=== PATIENT | female | born 1985 | race Caucasian/White ===

== ENCOUNTER 2022-01-17 06:29 | Observation (INO) ==
[2022-01-17] MEDS ORDERED: ANCEF VIAL 1 GRAM IVP ONE (06:34)
[2022-01-17] MEDS ORDERED: NS 100 ML IV 100 ML ONE (06:38)
[2022-01-17] MEDS: D5 1/2 NS 1,000 ML 1,000 ML IV SCH ×4 (06:50→18:47)
[2022-01-17] MEDS ORDERED: DUONEB 0.5 MG/3 MG (3 mL) NEB ONE (06:52)
[2022-01-17] MEDS ORDERED: FENTANYL VIAL INJ 100 mcg ONE (06:59)
[2022-01-17] MEDS ORDERED: VERSED ONE (06:59)
[2022-01-17] MEDS ORDERED: BRIDION ONE (07:01)
[2022-01-17] MEDS ORDERED: PEPCID 20 MG VIAL ONE (07:01)
[2022-01-17] MEDS ORDERED: ZEMURON 100 MG VIAL ONE (07:01)
[2022-01-17] MEDS ORDERED: ZOFRAN INJ 4 MG VIAL ONE ×2 (07:01→10:08)
[2022-01-17] MEDS ORDERED: PRECEDEX INJ VIAL IVP ONE (07:01)
[2022-01-17] MEDS ORDERED: DIPRIVAN VIAL 20 ML ONE (07:01)
[2022-01-17] MEDS ORDERED: BETADINE SOLN ONE (07:02)
[2022-01-17] MEDS ORDERED: VASOSTRICT INJ 20 UNITS VIAL ONE (07:05)
[2022-01-17 07:13] VITALS: BMI 18.8
[2022-01-17] MEDS ORDERED: VENTOLIN or PROAIR HFA ONE (07:22)
[2022-01-17] MEDS ORDERED: KETAMINE HCL ONE (07:22)
[2022-01-17] MEDS ORDERED: ULTANE GAS IN ONE ×2 (07:22→08:02)
[2022-01-17] MEDS ORDERED: XYLOCAINE 2 % (PLAIN) ONE (07:26)
[2022-01-17] MEDS ORDERED: LACRI-LUBE S.O.P. ONE (07:37)
[2022-01-17] MEDS ORDERED: OFIRMEV IV 1000 MG VIAL 1,000 MG/100 ML VIAL IV ONE (07:37)
[2022-01-17] MEDS ORDERED: DECADRON INJ ONE (07:39)
[2022-01-17] MEDS ORDERED: NEO-SYNEPHRINE INJ ONE (07:40)
[2022-01-17] MEDS ORDERED: TORADOL 30 MG VIAL ONE (09:06)
[2022-01-17] MEDS ORDERED: BARHEMSYS INJ IVP PRN (09:44)
[2022-01-17] MEDS ORDERED: PHENERGAN INJ 25 MG IM PRN (09:44)
[2022-01-17] MEDS ORDERED: BENADRYL INJ 50 MG VIAL IVP PRN ×2 (09:44→10:19)
[2022-01-17] MEDS ORDERED: BARHEMSYS INJ ONE (09:48)
[2022-01-17] MEDS ORDERED: DILAUDID INJ ONE ×2 (09:54→10:07)
[2022-01-17] MEDS: DILAUDID INJ IVP PRN ×3 (09:55→10:05)
[2022-01-17] MEDS ORDERED: ZOFRAN INJ 4 MG VIAL IVP PRN (10:19)
[2022-01-17] MEDS ORDERED: D5 1/2 NS 1,000 ML 1,000 ML IV SCH (10:19)
[2022-01-17] MEDS ORDERED: TORADOL 30 MG VIAL IVP PRN (10:19)
[2022-01-17] MEDS ORDERED: MORPHINE SULFATE PCA 30 MG IVP PRN (10:19)
[2022-01-17] MEDS ORDERED: PERCOCET TAB 5/325 MG PO PRN (17:04)
[2022-01-17] MEDS ORDERED: MOTRIN TAB 800 MG PO PRN (17:04)
[2022-01-17] MEDS: COLACE CAP 100 MG PO SCH (20:16)
[2022-01-18] MEDS: D5 1/2 NS 1,000 ML 1,000 ML IV SCH (01:39)
[2022-01-18 05:50] LABS: BASOPHILS % (AUTO) 0.1 % (0.2-1.0); HEMATOCRIT 30.1 % (36.0-47.0); LYMPHOCYTES # (AUTO) 1.3 X10^3/uL (1.3-2.9); LYMPHOCYTES % (AUTO) 10.7 % (21.0-51.0); MEAN CORPUSCULAR HEMOGLOBIN 29.6 pg (27.0-34.0); MEAN CORPUSCULAR HGB CONC 35.9 g/dL (33.0-35.0); MEAN CORPUSCULAR VOLUME 82.5 fL (80.0-100.0); MEAN PLATELET VOLUME 8.2 fL (7.4-11.0); MONOCYTES # (AUTO) 0.6 x10^3/uL (0.3-0.8); MONOCYTES % (AUTO) 5.1 % (0.0-13.0); NEUTROPHILS # (AUTO) 10.4 x10^3/uL (2.2-4.8); NEUTROPHILS % (AUTO) 84.1 % (42.0-75.0); RED BLOOD COUNT 3.64 X10^6/uL (3.5-5.4); RED CELL DISTRIBUTION WIDTH 12.7 % (11.6-16.5); WHITE BLOOD COUNT 12.4 X10^3/uL (3.6-10.0)
[2022-01-18 05:51] LABS: BLOOD UREA NITROGEN 3 mg/dL (7-18); CARBON DIOXIDE 26.5 mmol/L (21-32); CHLORIDE 105 mmol/L (98-107); COR NA(FOR HYPERGLY) 140 mmol/L (136-145); CREATININE 0.86 mg/dL (0.55-1.02); HEMOGLOBIN 10.8 g/dL (12.0-16.0); SODIUM 139 mmol/L (136-145); eGFR NON BLACK RACES > 60 (>60)
[2022-01-18] MEDS: COLACE CAP 100 MG PO SCH (08:41)
[2022-01-18 08:45] VITALS: BP 122/57
[2022-01-18] MEDS ORDERED: ESTRACE PO SCH (09:00)
== END 2022-01-18 10:00 | disposition home or self-care (01) ==
LOC: SURG1 06:29 → MED/SURG 06:29
PROVIDERS: ADMIT Specialist; ATTEND Specialist
DX: N92.5 Other specified irregular menstruation; N94.4 Primary dysmenorrhea; Z72.0 Tobacco use; R10.2 Pelvic and perineal pain; R87.613 High grade squamous intraepithelial lesion on cytologic smear of cervix (HGSIL)

== ENCOUNTER 2022-03-23 08:11 | Observation (INO) ==
[2022-03-23 08:23] VITALS: BMI 18.3
[2022-03-23 08:52] LABS: BILIRUBIN,URINE NEGATIVE (NEGATIVE); BLOOD/HEMOGLOBIN,URINE NEGATIVE (NEGATIVE); GLUCOSE, URINE NEGATIVE (NEGATIVE); KETONES,URINE NEGATIVE (NEGATIVE); LEUKOCYTE ESTERASE ,URINE 1+ (NEGATIVE); NITRITES,URINE NEGATIVE (NEGATIVE); PROTEIN,URINE NEGATIVE (NEGATIVE); UROBILINOGEN,URINE NORMAL (NORMAL)
--- NOTE | 2022-03-23 08:54 | DR.CP ---
HPI Time Seen Time Seen by Provider: 03/23/22 08:40 PCP Primary Care Physician: DR HAWKINS Complaint Chief Complaint Doctor Comments: AFTER HAVING SEX LAST NIGHT DEVELOPED R CHEST PAIN RADIATING TO R JAW. NO SOB AND ALSO HAS DYSURIA. Chief Complaint:: PT STATES THAT AROUND 9PM LAST NIGHT AFTER HAVING SEX SHE DEVELOPED A SUDDEN ONSET OF CONSTANT DULL PAIN INTO THE RIGHT CHEST WALL. SINCE THE ONSET THE PAIN OCCASSIONALLY RADIATES INTO BILATERAL SHOULDERS AND THE RIGHT JAW. PT DENIES SHORTNESS OF BREATH. COVID-19 Coronavirus risk:travel/contact w/high risk person: No Has patient experienced Coronavirus symptoms: No Source History Provided: Patient Mode of Arrival Mode of Arrival: Ambulatory Timing Onset of Chief Complaint: 03/23/22 Location Chest Pain Radiation Location: Left Shoulder, Right Jaw and Right Shoulder Associated Signs and Symptoms Associated Signs and Symptoms: None PMH PMH Past Medical History: No Past Surgical History: Yes Surgical History: Hysterectomy Past Surgical History Comment: EYE SURGERY Family History History of Family Medical Conditions: Yes Family Medical History: Diabetes Mellitus, Cancer, [place], Coronary Artery Disease, Heart Failure and Hypertension Social History Does patient currently use any type of tobacco product: Yes Have you used tobacco products in the last 12 months: Yes Type of Tobacco Use: Cigarettes Does any household member use tobacco: Yes Alcohol Use: None Do you use any recreational Drugs:: No Lives With: Spouse Lives Where: Home Travel Risk Coronavirus risk:travel/contact w/high risk person: No Has patient experienced Coronavirus symptoms: No Infectious screening In the last 2 months have you had wt loss of >10#?: NO Have you had fever, night sweats or hemotysis?: No Have you traveled outside the country in the last 6 months?: No Isolation: Standard ROS Review of Systems Constitutional: Other (R CHEST PAIN AND DYSURIA) Eyes: No Symptoms Reported ENTM: No Symptoms Reported Respiratoy: No Symptoms Reported Cardiovascular: Chest Pain Gastrointestinal/Abdominal: No Symptoms Reported Genitourinary: No Symptoms Reported Neurological: No Symptoms Reported Musculoskeletal: No Symptoms Reported Integumentary: No Symptoms Reported Hematologic/Lymphatic: No Symptoms Reported Endocrine: No Symptoms Reported Psychiatric: No Symptoms Reported PE Vitals Vitals: Temperature 98.1 F Pulse Rate 70 Respiratory Rate 23 Blood Pressure [Right Arm] 122/57 Blood Pressure 116/64 O2 Sat by Pulse Oximetry 99 General Limitations: No Limitations General Appearance: In No Apparent Distress Head Head Exam: Normal Inspection, Atraumatic and Normocephalic Eyes Eye exam: Normal Appearance, PERRL and EOMI ENT ENT Exam: Normal Exam, Normal Oropharynx and Normal External Ear Exam Chest Chest Inspection: Normal Inspection and Symmetric Chest Wall Rise Respiratory Respiratory Exam: Normal Lung Sounds Bilat Respiratory Exam: Bilateral: Clear to Auscultation Cardiovascular Cardiovascular Exam: Regular Rate and Normal Rhythm Pulse: Normal and Radial Edema: Normal Abdominal Exam Abdominal Exam: Normal Inspection, Normal Bowel Sounds and Soft Abdominal Tenderness: Suprapubic Extremities Extremities Exam: Normal Inspection and Full ROM Back Back Exam: Normal Inspection and Full ROM Neurologic Neurological Exam: Alert, Oriented X3 and CN II-XII Intact Psychiatric Psychiatric Exam: Normal Affect and Normal Mood Skin Skin Exam: Warm, Dry and Intact MDM Differential Diagnosis Differential Diagnosis: Angina, Chest Wall Pain and Myocardial Infarction COURSE Treatment Treatment: PATIENT REMAINED RELATIVELY STABLE DURING ER EVALUATION . WAS N EGATIVE ON CARDIAC EVALUATION. CHEST XRAY SHOWED WHAT APPEARED TO BE FREE AIR IN THE UPPER ABDOMIAN AREA AND SUGGESTED CT OF ABDOMEN AND PELVIS FOR FURTHER EVALUATION. THE PATIEN WAS POSITIVE FOR UTI ON LAB EVALUATION. THE CT SCAN OF ABDOMENT AND PELVIS SHOWED FREE AIR SCATTERED THROUGHOUT THE PELVIS MOST PRONOUNCED IN THE NON DEPENDENT PORTION OF THE ABDOMEN. ALSO SHOWED DILATATION OF BILIARY DUCT AND GALLSTONES. CONTACT WAS MADE WITH SURGEON BOTTOM BRUSHER ,DR HAYNES AT 1516 AND HES TATED TO ADMIT THE PATIENT TO HIM AND START CIPRO IV BID AND KEEP NPO. WE ALSO STARTE IVF OF NACL 125CC/HR. PATIENT WAS TOLD OF THE INTENT AND WAS AGREABLE TO THE OBSERVATION ADMISSION FOR FURTHER EVALUATION. ROR Labs Reviewed Laboratory Results Reviewed?: Yes Result Diagrams: 03/23/22 09:50 03/23/22 09:50 Laboratory: WBC 6.9 X10^3/uL (3.6-10.0) 03/23/22 09:50 RBC 4.47 X10^6/uL (3.5-5.4) 03/23/22 09:50 Hgb 12.9 g/dL (12.0-16.0) 03/23/22 09:50 Hct 37.1 % (36.0-47.0) 03/23/22 09:50 MCV 82.9 fL (80.0-100.0) 03/23/22 09:50 MCH 28.8 pg (27.0-34.0) 03/23/22 09:50 MCHC 34.7 g/dL (33.0-35.0) 03/23/22 09:50 RDW 12.7 % (11.6-16.5) 03/23/22 09:50 Plt Count 177 X10^3/uL (150.0-450.0) 03/23/22 09:50 MPV 7.7 fL (7.4-11.0) 03/23/22 09:50 Neut % (Auto) 74.4 % (42.0-75.0) 03/23/22 09:50 Lymph % (Auto) 19.4 % (21.0-51.0) L 03/23/22 09:50 [place] % (Auto) 4.6 % (0.0-13.0) 03/23/22 09:50 Eos % (Auto) 1.1 % (0.9-2.9) 03/23/22 09:50 Baso % (Auto) 0.5 % (0.2-1.0) 03/23/22 09:50 Neut # (Auto) 5.1 x10^3/uL (2.2-4.8) H 03/23/22 09:50 Lymph # (Auto) 1.3 X10^3/uL (1.3-2.9) 03/23/22 09:50 [place] # (Auto) 0.3 x10^3/uL (0.3-0.8) 03/23/22 09:50 Eos # (Auto) 0.1 x10^3/uL (0.0-0.2) 03/23/22 09:50 Baso # (Auto) 0.0 X10^3/uL (0.0-0.1) 03/23/22 09:50 Absolute Nucleated RBC 0.0 /100WBC 03/23/22 09:50 PT 13.9 SECONDS (11.8-14.3) 03/23/22 09:50 INR Target Range - 03/23/22 09:50 INR 1.11 (0.8-1.3) 03/23/22 09:50 APTT 26.4 SECONDS (22.9-36.5) 03/23/22 09:50 PTT Comment - 03/23/22 09:50 Sodium 141 mmol/L (136-145) 03/23/22 09:50 Corrected Sodium TNP 03/23/22 09:50 Potassium 3.8 mmol/L (3.5-5.1) 03/23/22 09:50 Chloride 103 mmol/L (98-107) 03/23/22 09:50 Carbon Dioxide 31.8 mmol/L (21-32) 03/23/22 09:50 BUN 10 mg/dL (7-18) 03/23/22 09:50 Creatinine 0.79 mg/dL (0.55-1.02) 03/23/22 09:50 Est GFR (MDRD) Af Amer > 60 (>60) 03/23/22 09:50 Est GFR (MDRD) Non-Af > 60 (>60) 03/23/22 09:50 Glucose 85 mg/dL (65-99) 03/23/22 09:50 Calcium 9.9 mg/dL (8.5-10.1) 03/23/22 09:50 Corrected Calcium TNP 03/23/22 09:50 Magnesium 2.1 mg/dL (2.0-2.9) 03/23/22 09:50 Total Bilirubin 0.40 mg/dL (0.2-1.0) 03/23/22 09:50 AST 18 Units/L (15-37) 03/23/22 09:50 ALT 16 Units/L (12-78) 03/23/22 09:50 Alkaline Phosphatase 86 Units/L (46-116) 03/23/22 09:50 Creatine Kinase 62 Units/L (26-192) 03/23/22 09:50 Troponin I High Sens 7.5 ng/L (4.0-60.0) 03/23/22 09:50 Total Protein 7.2 g/dL (6.4-8.2) 03/23/22 09:50 Albumin 3.8 g/dL (3.4-5.0) 03/23/22 09:50 Globulin 3.4 g/dL (2.5-4.5) 03/23/22 09:50 Albumin/Globulin Ratio 1.1 Ratio (1.1-2.1) 03/23/22 09:50 Specimen Type Clean catch urine 03/23/22 08:40 Urine Color Yellow (YELLOW) 03/23/22 08:40 Urine Appearance Clear (CLEAR) 03/23/22 08:40 Urine pH 6.0 (5.0 - 8.0) 03/23/22 08:40 Ur Specific [place] 1.015 (1.000-1.030) 03/23/22 08:40 Urine Protein Negative (NEGATIVE) 03/23/22 08:40 Urine Glucose (UA) Negative (NEGATIVE) 03/23/22 08:40 Urine Ketones Negative (NEGATIVE) 03/23/22 08:40 Urine Blood Negative (NEGATIVE) 03/23/22 08:40 Urine Nitrite Negative (NEGATIVE) 03/23/22 08:40 Urine Bilirubin Negative (NEGATIVE) 03/23/22 08:40 Urine Urobilinogen Normal (NORMAL) 03/23/22 08:40 Ur Leukocyte Esterase 1+ (NEGATIVE) 03/23/22 08:40 Urine RBC 0-2 /HPF (0-3) 03/23/22 08:40 Urine WBC 3-5 /HPF (0-5) 03/23/22 08:40 Ur Squamous Epith Cells Few /HPF (NEGATIVE) 03/23/22 08:40 Urine Bacteria Trace /HPF (NEGATIVE) 03/23/22 08:40 Ur Culture Indicated? No/not indicated 03/23/22 08:40 Opioid Opioid Risk Tool Age (Nino box if 16-45): Yes History of Preadolescent Sexual Abuse: No Total: 1 Total Score Risk Category: Low Risk Copyright: Eddie JARAMILLO predicting aberrant behaviors Discharge Plan Diagnosis Discharge Problem: Pneumoperitoneum, UTI (urinary tract infection) Discharge Plan Patient Disposition: 09 ADMITTED INPATIENT Condition: Stable Orders to Discharge Patient Discharge Orders: Transfer (Routine); Ordered 03/23/22 Ordered By: Gareth Sanchez
[2022-03-23 08:55] LABS: APPEARANCE,URINE CLEAR (CLEAR); COLOR,URINE YELLOW (YELLOW)
[2022-03-23] MEDS ORDERED: ASPIRIN ONE (08:57)
[2022-03-23 08:59] LABS: RBC,URINE 0-2 /HPF (0-3)
[2022-03-23 09:00] LABS: BACTERIA,URINE TRACE /HPF (NEGATIVE); SQUAMOUS EPITHELIAL CELL,UR FEW /HPF (NEGATIVE)
[2022-03-23] MEDS ORDERED: ECOTRIN TAB 325 MG PO ONE (09:00)
[2022-03-23 10:06] LABS: BASOPHILS % (AUTO) 0.5 % (0.2-1.0); EOSINOPHILS # (AUTO) 0.1 x10^3/uL (0.0-0.2); EOSINOPHILS % (AUTO) 1.1 % (0.9-2.9); HEMATOCRIT 37.1 % (36.0-47.0); HEMOGLOBIN 12.9 g/dL (12.0-16.0); LYMPHOCYTES # (AUTO) 1.3 X10^3/uL (1.3-2.9); LYMPHOCYTES % (AUTO) 19.4 % (21.0-51.0); MEAN CORPUSCULAR HEMOGLOBIN 28.8 pg (27.0-34.0); MEAN CORPUSCULAR HGB CONC 34.7 g/dL (33.0-35.0); MEAN CORPUSCULAR VOLUME 82.9 fL (80.0-100.0); MEAN PLATELET VOLUME 7.7 fL (7.4-11.0); MONOCYTES # (AUTO) 0.3 x10^3/uL (0.3-0.8); MONOCYTES % (AUTO) 4.6 % (0.0-13.0); NEUTROPHILS # (AUTO) 5.1 x10^3/uL (2.2-4.8); NEUTROPHILS % (AUTO) 74.4 % (42.0-75.0); RED BLOOD COUNT 4.47 X10^6/uL (3.5-5.4); RED CELL DISTRIBUTION WIDTH 12.7 % (11.6-16.5); WHITE BLOOD COUNT 6.9 X10^3/uL (3.6-10.0)
[2022-03-23 10:07] LABS: INR 1.11 (0.8-1.3)
[2022-03-23 10:18] LABS: ALANINE AMINOTRANSFERASE 16 Units/L (12-78); ALBUMIN 3.8 g/dL (3.4-5.0); ALKALINE PHOSPHATASE 86 Units/L (46-116); ASPARTATE AMINO TRANSFERASE 18 Units/L (15-37); BLOOD UREA NITROGEN 10 mg/dL (7-18); CALCIUM 9.9 mg/dL (8.5-10.1); CARBON DIOXIDE 31.8 mmol/L (21-32); CHLORIDE 103 mmol/L (98-107); CREATINE KINASE 62 Units/L (26-192); CREATININE 0.79 mg/dL (0.55-1.02); MAGNESIUM 2.1 mg/dL (2.0-2.9); SODIUM 141 mmol/L (136-145); TOTAL PROTEIN 7.2 g/dL (6.4-8.2); eGFR NON BLACK RACES > 60 (>60)
--- NOTE | 2022-03-23 10:58 | EKG ---
Test Reason : CHEST PAIN Blood Pressure : */* mmHG Vent. Rate : 66 BPM Atrial Rate : 66 BPM P-R Int : 158 ms QRS Dur : 74 ms QT Int : 396 ms P-R-T Axes : 72 32 40 degrees QTc Int : 415 ms Sinus rhythm with occasional premature ventricular complexes Otherwise normal ECG Confirmed by Vin Carlton ([id number]) on 03/24/2022 10:09:15 AM Referred By: Confirmed By: Vin Carlton
--- NOTE | 2022-03-23 11:10 | RAD ---
HISTORYPain in chest after having sexSTUDYPortable AP chestCOMPARISONNoneFINDINGSHeart size normal with clear lungs and pleural spaces. There is free air under both sides of the diaphragm.IMPRESSIONPneumoperitoneum, negative chest. If there has not been any abdominal instrumentation or recent surgical procedure, perforated bowel is probable. Correlate with history and follow-up.Electronically signed by: SRAVANI MURILLO (Mar 23, 2022 11:08:22)
--- NOTE | 2022-03-23 13:41 | CT ---
HISTORYPNEUMOPERITONEUMSTUDYABDOMEN/PELVIS WITH CONCOMPARISONChest radiograph dated 03/23/2022.TECHNIQUEMultiple axial images of the abdomen and pelvis were obtained from the lung bases to the pubic symphysis after the administration of IV contrast. Dose reduction techniques including Automated Exposure Control (AEC) and adjustment of mA and kV were utilized.FINDINGSIncluded portions of the lung bases are clear. There is free air scattered throughout the abdomen and pelvis which is most notable within the nondependent portions of the upper abdomen. There is no significant intraperitoneal free fluid or organized fluid collection identified. There is mild intrahepatic biliary ductal dilatation. There are a few intrahepatic subcentimeter hypodensities noted which are incompletely characterized, but may reflect small cysts. There is a partially calcified gallstone within the region of the gallbladder neck without associated gallbladder wall thickening. The pancreas, spleen, adrenal glands and kidneys are unremarkable in their CT appearance. The uterus is surgically absent. The urinary bladder is incompletely distended and not optimally evaluate. The appendix is not visualized. The colon is grossly unremarkable without evidence of diverticulosis. There is no small bowel dilatation. There is no significant mesenteric stranding or lymphadenopathy. The abdominal aorta is non aneurysmal. The bony structures are grossly intact.IMPRESSION1. Nonspecific pneumoperitoneum without definite source identified. Clinical correlation is requested and surgical consultation is recommended.2. Nonspecific intrahepatic biliary ductal dilatation with partially calcified gallstone present within the gallbladder neck region. Biliary obstruction is not excluded. Correlation with LFTs is suggested and MRCP may be of further diagnostic benefit.Electronically signed by: YE JARAMILLO (Mar 23, 2022 13:39:56)
[2022-03-23] MEDS ORDERED: CIPRO IV 400 MG PREMIX* 400 MG/200 ML IV.SOLN. IV ONE (15:36)
[2022-03-23] MEDS ORDERED: NS 1,000 ML IV 1,000 ML ONE (15:40)
[2022-03-23] MEDS: CIPRO IV 400 MG PREMIX* 400 MG/200 ML IV.SOLN. IV SCH (15:46)
[2022-03-23] MEDS: NS 1,000 ML IV 1,000 ML IV SCH (15:46)
[2022-03-23] MEDS ORDERED: ZOFRAN INJ 4 MG VIAL IVP PRN (17:45)
[2022-03-23] MEDS ORDERED: DEMEROL INJ IVP PRN (17:45)
[2022-03-23] MEDS ORDERED: PERCOCET TAB 5/325 MG PO PRN (21:11)
--- NOTE | 2022-03-23 23:19 | DR.H&P ---
H&P History & Physical for Day of: H&P Date: 03/23/22 Chief Complaint Chief Complaint: Diffuse abdominal pain and chest pain. Allergies Allergies Allergy/AdvReac Type Severity Reaction Status Date / Time No Known Drug Allergies Allergy Verified 01/17/22 06:58 History of Present Illness History of Present Illness: 36 yo female with onset of right chest pain and ab dominal pain , primarily on the right side after sex. Evaluated in the ER and CXR shows pneumoperitoneum. CT of the abdomen showed no obvious pathology as the cause. CT did note gallstones with gallbladder wall thickening Etiologimpacted in the neck of the gallbladder . Patient had laparoscopic hysterectomy several weeks ago. Past Surgical History Surgical History: Hysterectomy Family History Family Medical History: Diabetes Mellitus, Cancer, [place], Coronary Artery Disease, Heart Failure, Sudden Cardiac and Hypertension Social History Does patient currently use any type of tobacco product: Yes Have you used tobacco products in the last 12 months: Yes Type of Tobacco Use: Cigarettes How many years tobacco product used: 24 Does any household member use tobacco: Yes Alcohol Use: None Drug Use: None Medications Home Medications: No Known Drug Allergies Allergy (Verified 01/17/22 06:58) Labs Result Diagrams: 03/23/22 09:50 03/23/22 09:50 Labs: Laboratory WBC 6.9 X10^3/uL (3.6-10.0) 03/23/22 09:50 RBC 4.47 X10^6/uL (3.5-5.4) 03/23/22 09:50 Hgb 12.9 g/dL (12.0-16.0) 03/23/22 09:50 Hct 37.1 % (36.0-47.0) 03/23/22 09:50 MCV 82.9 fL (80.0-100.0) 03/23/22 09:50 MCH 28.8 pg (27.0-34.0) 03/23/22 09:50 MCHC 34.7 g/dL (33.0-35.0) 03/23/22 09:50 RDW 12.7 % (11.6-16.5) 03/23/22 09:50 Plt Count 177 X10^3/uL (150.0-450.0) 03/23/22 09:50 MPV 7.7 fL (7.4-11.0) 03/23/22 09:50 Neut % (Auto) 74.4 % (42.0-75.0) 03/23/22 09:50 Lymph % (Auto) 19.4 % (21.0-51.0) L 03/23/22 09:50 Lane % (Auto) 4.6 % (0.0-13.0) 03/23/22 09:50 Eos % (Auto) 1.1 % (0.9-2.9) 03/23/22 09:50 Baso % (Auto) 0.5 % (0.2-1.0) 03/23/22 09:50 Neut # (Auto) 5.1 x10^3/uL (2.2-4.8) H 03/23/22 09:50 Lymph # (Auto) 1.3 X10^3/uL (1.3-2.9) 03/23/22 09:50 Lane # (Auto) 0.3 x10^3/uL (0.3-0.8) 03/23/22 09:50 Eos # (Auto) 0.1 x10^3/uL (0.0-0.2) 03/23/22 09:50 Baso # (Auto) 0.0 X10^3/uL (0.0-0.1) 03/23/22 09:50 Absolute Nucleated RBC 0.0 /100WBC 03/23/22 09:50 PT 13.9 SECONDS (11.8-14.3) 03/23/22 09:50 INR Target Range - 03/23/22 09:50 INR 1.11 (0.8-1.3) 03/23/22 09:50 APTT 26.4 SECONDS (22.9-36.5) 03/23/22 09:50 PTT Comment - 03/23/22 09:50 Sodium 141 mmol/L (136-145) 03/23/22 09:50 Corrected Sodium TNP 03/23/22 09:50 Potassium 3.8 mmol/L (3.5-5.1) 03/23/22 09:50 Chloride 103 mmol/L (98-107) 03/23/22 09:50 Carbon Dioxide 31.8 mmol/L (21-32) 03/23/22 09:50 BUN 10 mg/dL (7-18) 03/23/22 09:50 Creatinine 0.79 mg/dL (0.55-1.02) 03/23/22 09:50 Est GFR (MDRD) Af Amer > 60 (>60) 03/23/22 09:50 Est GFR (MDRD) Non-Af > 60 (>60) 03/23/22 09:50 Glucose 85 mg/dL (65-99) 03/23/22 09:50 Calcium 9.9 mg/dL (8.5-10.1) 03/23/22 09:50 Corrected Calcium TNP 03/23/22 09:50 Magnesium 2.1 mg/dL (2.0-2.9) 03/23/22 09:50 Total Bilirubin 0.40 mg/dL (0.2-1.0) 03/23/22 09:50 AST 18 Units/L (15-37) 03/23/22 09:50 ALT 16 Units/L (12-78) 03/23/22 09:50 Alkaline Phosphatase 86 Units/L (46-116) 03/23/22 09:50 Creatine Kinase 62 Units/L (26-192) 03/23/22 09:50 Troponin I High Sens 7.5 ng/L (4.0-60.0) 03/23/22 09:50 Total Protein 7.2 g/dL (6.4-8.2) 03/23/22 09:50 Albumin 3.8 g/dL (3.4-5.0) 03/23/22 09:50 Globulin 3.4 g/dL (2.5-4.5) 03/23/22 09:50 Albumin/Globulin Ratio 1.1 Ratio (1.1-2.1) 03/23/22 09:50 Specimen Type Clean catch urine 03/23/22 08:40 Urine Color Yellow (YELLOW) 03/23/22 08:40 Urine Appearance Clear (CLEAR) 03/23/22 08:40 Urine pH 6.0 (5.0 - 8.0) 03/23/22 08:40 Ur Specific [place] 1.015 (1.000-1.030) 03/23/22 08:40 Urine Protein Negative (NEGATIVE) 03/23/22 08:40 Urine Glucose (UA) Negative (NEGATIVE) 03/23/22 08:40 Urine Ketones Negative (NEGATIVE) 03/23/22 08:40 Urine Blood Negative (NEGATIVE) 03/23/22 08:40 Urine Nitrite Negative (NEGATIVE) 03/23/22 08:40 Urine Bilirubin Negative (NEGATIVE) 03/23/22 08:40 Urine Urobilinogen Normal (NORMAL) 03/23/22 08:40 Ur Leukocyte Esterase 1+ (NEGATIVE) 03/23/22 08:40 Urine RBC 0-2 /HPF (0-3) 03/23/22 08:40 Urine WBC 3-5 /HPF (0-5) 03/23/22 08:40 Ur Squamous Epith Cells Few /HPF (NEGATIVE) 03/23/22 08:40 Urine Bacteria Trace /HPF (NEGATIVE) 03/23/22 08:40 Ur Culture Indicated? No/not indicated 03/23/22 08:40 Review of Systems Constitutional: See HPI Eyes: No Symptoms Reported ENT: No Symptoms Reported Respiratory: No Symptoms Reported Cardiovascular: No Symptoms Reported Gastrointestinal: See HPI Genitourinary: No Symptoms Reported Musculoskeletal: No Symptoms Reported Skin: No Symptoms Reported Neurological: No Symptoms Reported Physical Exam Vital Signs: Temperature 98.0 F Pulse Rate [Right Radial] 82 Pulse Rate 70 Respiratory Rate 18 Blood Pressure [Left Arm] 105/60 Blood Pressure [Right Arm] 109/63 Blood Pressure 116/64 O2 Sat by Pulse Oximetry 100 Oriented: Normal, Time, Person and Place Eyes: Normal Ear: Normal Nose: Normal Throat: Normal Respiratory: Clear Throughout Cardiovascular: Normal : Normal Auscultation: Bowel Sounds: Normal Tenderness: Other ( Very mild diffuse tenderness. ) Skin: Normal Musculoskeletal: Normal Psychiatric: Normal Mood Description: Anxious Affect: Normal Speech Pattern: Clear and Appropriate Assessment/Plan (1) Pneumoperitoneum of unknown etiology: Narrative Support Text: Etiology unknown but no obvious etiology and no evidence of acute abdomen.Will observe. Status: Acute (2) Cholelithiases: Narrative Support Text: Will re- examine and my require laparoscopic cholecystectomy. Status: Acute Review H&P Reviewed: Yes Patient was examined?: Yes
[2022-03-24] MEDS: NS 1,000 ML IV 1,000 ML IV SCH ×3 (01:00→17:29)
[2022-03-24] MEDS: CIPRO IV 400 MG PREMIX* 400 MG/200 ML IV.SOLN. IV SCH ×2 (08:15→20:53)
--- NOTE | 2022-03-24 16:23 | NOTE.SOAP ---
Soap Note Note for Day of Date of Exam: 03/24/22 Subjective Data Subjective Data: Patietn doing well. Hungry. Objective Data Temperature: 98.1 F Pulse Rate: 96 Respiratory Rate: 18 Blood Pressure: 132/60 O2 Sat by Pulse Oximetry: 100 Objective Data: Mild tenderness RUQ. No evidence of acute abdomen. Assessment Assessment: Discussed options and was going to proceed with laparoscopic cholecystectomy due to the gallbladder wall thickening , even though this probably has nothing to do with the pneumoperitoneum , CT showing no obvious pathology and air probably related to laparoscopic ANDREW/BSO several weeks ago. Could not get pre- certification from insurance [employer] and will probably be Saturday. She will stay. Plan Plan: Diet , continue IV antibiotics.
[2022-03-25] MEDS: NS 1,000 ML IV 1,000 ML IV SCH ×3 (04:51→16:00)
[2022-03-25] MEDS: CIPRO IV 400 MG PREMIX* 400 MG/200 ML IV.SOLN. IV SCH ×2 (08:15→20:38)
--- NOTE | 2022-03-25 21:04 | NOTE.SOAP ---
Soap Note Note for Day of Date of Exam: 03/25/22 Subjective Data Subjective Data: Still with mild RUQ pain and tenderness. Objective Data Temperature: 98.6 F Pulse Rate: 77 Respiratory Rate: 18 Blood Pressure: 140/86 O2 Sat by Pulse Oximetry: 100 Objective Data: As above Assessment Assessment: cholelithiasis and chronic cholecystitis. Plan Plan: laparoscopic cholecystectomy tomorrow, risks and benefits discussed and she and her agree to proceed.
[2022-03-26] MEDS: NS 1,000 ML IV 1,000 ML IV SCH ×2 (02:01→08:24)
[2022-03-26 05:06] LABS: BASOPHILS % (AUTO) 0.5 % (0.2-1.0); EOSINOPHILS # (AUTO) 0.2 x10^3/uL (0.0-0.2); EOSINOPHILS % (AUTO) 3.8 % (0.9-2.9); HEMATOCRIT 33.9 % (36.0-47.0); HEMOGLOBIN 11.8 g/dL (12.0-16.0); LYMPHOCYTES # (AUTO) 1.7 X10^3/uL (1.3-2.9); LYMPHOCYTES % (AUTO) 33.3 % (21.0-51.0); MEAN CORPUSCULAR HEMOGLOBIN 28.5 pg (27.0-34.0); MEAN CORPUSCULAR HGB CONC 34.7 g/dL (33.0-35.0); MEAN CORPUSCULAR VOLUME 82.1 fL (80.0-100.0); MEAN PLATELET VOLUME 7.7 fL (7.4-11.0); MONOCYTES # (AUTO) 0.3 x10^3/uL (0.3-0.8); MONOCYTES % (AUTO) 5.5 % (0.0-13.0); NEUTROPHILS # (AUTO) 2.9 x10^3/uL (2.2-4.8); NEUTROPHILS % (AUTO) 56.9 % (42.0-75.0); RED BLOOD COUNT 4.13 X10^6/uL (3.5-5.4); RED CELL DISTRIBUTION WIDTH 12.4 % (11.6-16.5); WHITE BLOOD COUNT 5.1 X10^3/uL (3.6-10.0)
[2022-03-26 05:18] LABS: ALANINE AMINOTRANSFERASE 8 Units/L (12-78); ALKALINE PHOSPHATASE 67 Units/L (46-116); ASPARTATE AMINO TRANSFERASE 14 Units/L (15-37); BLOOD UREA NITROGEN 9 mg/dL (7-18); CALCIUM 8.2 mg/dL (8.5-10.1); CARBON DIOXIDE 28.2 mmol/L (21-32); CHLORIDE 107 mmol/L (98-107); CREATININE 0.74 mg/dL (0.55-1.02); SODIUM 143 mmol/L (136-145); TOTAL PROTEIN 6.1 g/dL (6.4-8.2); eGFR NON BLACK RACES > 60 (>60)
[2022-03-26] MEDS: CIPRO IV 400 MG PREMIX* 400 MG/200 ML IV.SOLN. IV SCH (08:05)
[2022-03-26] MEDS ORDERED: ROBINUL ONE ×2 (10:20→10:25)
[2022-03-26] MEDS ORDERED: ZEMURON 100 MG VIAL ONE (10:20)
[2022-03-26] MEDS ORDERED: ZOFRAN INJ 4 MG VIAL ONE (10:20)
[2022-03-26] MEDS ORDERED: PEPCID 20 MG VIAL ONE (10:20)
[2022-03-26] MEDS ORDERED: DECADRON INJ ONE (10:20)
[2022-03-26] MEDS ORDERED: TORADOL 30 MG VIAL ONE (10:21)
[2022-03-26] MEDS ORDERED: BRIDION ONE ×2 (10:22→12:21)
[2022-03-26] MEDS ORDERED: XYLOCAINE 2 % (PLAIN) ONE (10:22)
[2022-03-26] MEDS ORDERED: FENTANYL VIAL INJ 100 mcg ONE (10:22)
[2022-03-26] MEDS ORDERED: PRECEDEX INJ VIAL IVP ONE (10:22)
[2022-03-26] MEDS ORDERED: DIPRIVAN VIAL 20 ML ONE (10:22)
[2022-03-26] MEDS ORDERED: VERSED ONE (10:22)
[2022-03-26] MEDS ORDERED: OFIRMEV IV 1000 MG VIAL 1,000 MG/100 ML VIAL IV ONE (10:22)
[2022-03-26] MEDS ORDERED: LR 1,000 ML IV 1,000 ML IV ONE (10:39)
[2022-03-26] MEDS ORDERED: ANCEF VIAL 1 GRAM ONE (10:40)
[2022-03-26] MEDS ORDERED: NS 100 ML IV 100 ML ONE (10:40)
[2022-03-26] MEDS ORDERED: ULTANE GAS IN ONE (11:17)
[2022-03-26] MEDS ORDERED: KETAMINE HCL ONE (11:17)
[2022-03-26] MEDS ORDERED: LACRI-LUBE S.O.P. ONE (11:27)
[2022-03-26] MEDS ORDERED: EPHEDRINE SULFATE INJ ONE ×2 (11:35)
[2022-03-26] MEDS ORDERED: NORMODYNE INJ 20 MG VIAL ONE (11:47)
[2022-03-26] MEDS ORDERED: MARCAINE/EPINEPHRINE ONE (12:01)
[2022-03-26] MEDS ORDERED: PERCOCET TAB 5/325 MG PO PRN (12:12)
[2022-03-26] MEDS ORDERED: PHENERGAN INJ 25 MG IM PRN (12:33)
[2022-03-26] MEDS ORDERED: BENADRYL INJ 50 MG VIAL IVP PRN (12:33)
[2022-03-26] MEDS ORDERED: BARHEMSYS INJ IVP PRN (12:33)
[2022-03-26] MEDS ORDERED: DILAUDID INJ IVP PRN (12:33)
[2022-03-26 17:49] VITALS: BP 126/76
--- NOTE | 2022-03-26 18:29 | W.DIS.FURT ---
Summary of Discharge Discharge Summary of Date Date of Exam: 03/26/22 Admission Date Date of Admission: 03/23/22 Admission Diagnosis Patient Problems (Updated 03/23/22 @ 23:36 by Pepito Stover) Pneumoperitoneum (Acute) K66.8 UTI (urinary tract infection) (Acute) N39.0 Hospital Course: 36 year old female who presented to the emergency room with abdominal pain radiating into right back after intercourse. Patient had a laparoscopic total hysterectomy and bilateral salpingo-oophorectomy approximately six weeks prior. Plain films showed pneumoperitoneum. CT scan done without contrast showed no obvious intra- abdominal pathology except for a gallstone impacted in the neck of the gallbladder with chronic gallbladder wall thickening. There was no obvious etiology of the pneumoperitoneum . She was taken to the operating room and underwent uncomplicated laparoscopic cholecystectomy. She is tolerating a diet well. She will be discharged home and follow up with me and one week. She is given Percocet 5 mg tablets, one every six hours PRN pain. Vital Signs: Vital Signs (72 hours) 03/24/22 16:23 03/25/22 21:18 03/23/22 19:00 Temperature 98.1 F 98.6 F Pulse Rate 96 H 77 Pulse Rate [Right Radial] Respiratory Rate 18 18 Blood Pressure 132/60 140/86 Blood Pressure [Left Arm] O2 Sat by Pulse Oximetry 100 100 Oxygen Delivery Method Room Air 03/23/22 20:00 03/24/22 00:00 03/24/22 04:00 Temperature 98.0 F 97.8 F 98.8 F Pulse Rate Pulse Rate [Right Radial] 82 73 70 Respiratory Rate 18 16 16 Blood Pressure Blood Pressure [Left Arm] 105/60 96/54 98/50 O2 Sat by Pulse Oximetry 100 98 98 Oxygen Delivery Method Room Air Room Air Room Air 03/24/22 08:00 03/24/22 07:00 03/24/22 12:00 Temperature 98.8 F 98.4 F Pulse Rate Pulse Rate [Right Radial] 72 71 Respiratory Rate 18 18 Blood Pressure Blood Pressure [Left Arm] 105/60 105/55 O2 Sat by Pulse Oximetry 98 100 Oxygen Delivery Method Room Air Room Air Room Air 03/24/22 16:00 03/24/22 20:00 03/24/22 19:00 Temperature 98.1 F 98.3 F Pulse Rate Pulse Rate [Right Radial] 96 H 81 Respiratory Rate 18 18 Blood Pressure Blood Pressure [Left Arm] 132/60 122/60 O2 Sat by Pulse Oximetry 100 100 Oxygen Delivery Method Room Air Room Air Room Air 03/25/22 00:00 03/25/22 04:00 03/25/22 07:00 Temperature 98.2 F 98.4 F Pulse Rate Pulse Rate [Right Radial] 75 68 Respiratory Rate 18 18 Blood Pressure Blood Pressure [Left Arm] 110/60 117/67 O2 Sat by Pulse Oximetry 98 97 Oxygen Delivery Method Room Air Room Air Room Air 03/25/22 08:00 03/25/22 12:00 03/25/22 15:57 Temperature 97.9 F 98.5 F 98.6 F Pulse Rate Pulse Rate [Right Radial] 71 72 87 Respiratory Rate 18 18 18 Blood Pressure Blood Pressure [Left Arm] 111/56 108/58 114/56 O2 Sat by Pulse Oximetry 100 100 100 Oxygen Delivery Method Room Air Room Air Room Air 03/25/22 20:00 03/25/22 19:00 03/26/22 00:00 Temperature 98.6 F 98.3 F Pulse Rate Pulse Rate [Right Radial] 77 77 Respiratory Rate 18 20 Blood Pressure Blood Pressure [Left Arm] 140/86 136/78 O2 Sat by Pulse Oximetry 100 100 Oxygen Delivery Method Room Air Room Air Room Air 03/26/22 04:00 03/26/22 07:00 03/26/22 08:00 Temperature 98.2 F 98.2 F Pulse Rate Pulse Rate [Right Radial] 72 69 Respiratory Rate 20 18 Blood Pressure Blood Pressure [Left Arm] 101/58 113/61 O2 Sat by Pulse Oximetry 100 100 Oxygen Delivery Method Room Air Room Air Room Air 03/26/22 10:55 03/26/22 11:40 03/26/22 12:27 Temperature 97.5 F L 97.2 F L Pulse Rate 71 93 H Pulse Rate [Right Radial] Respiratory Rate 18 16 18 Blood Pressure 130/84 131/81 Blood Pressure [Left Arm] O2 Sat by Pulse Oximetry 99 100 Oxygen Delivery Method Room Air Aerosol Face Tent 03/26/22 12:42 03/26/22 12:47 03/26/22 12:52 Temperature Pulse Rate 90 90 104 H Pulse Rate [Right Radial] Respiratory Rate 18 18 18 Blood Pressure 114/59 112/56 121/61 Blood Pressure [Left Arm] O2 Sat by Pulse Oximetry 98 98 99 Oxygen Delivery Method Aerosol Face Tent Aerosol Face Tent Nasal Cannula 03/26/22 12:57 03/26/22 12:32 03/26/22 12:37 Temperature Pulse Rate 97 H 90 90 Pulse Rate [Right Radial] Respiratory Rate 18 18 18 Blood Pressure 128/73 120/74 110/61 Blood Pressure [Left Arm] O2 Sat by Pulse Oximetry 100 99 98 Oxygen Delivery Method Nasal Cannula Aerosol Face Tent Aerosol Face Tent 03/26/22 13:15 03/26/22 13:30 03/26/22 13:45 Temperature 97.6 F Pulse Rate Pulse Rate [Right Radial] 82 76 76 Respiratory Rate 18 18 18 Blood Pressure Blood Pressure [Left Arm] 123/80 124/79 124/80 O2 Sat by Pulse Oximetry 99 97 100 Oxygen Delivery Method Room Air Room Air Room Air 03/26/22 14:00 03/26/22 14:15 03/26/22 15:15 Temperature 98.1 F 98.1 F Pulse Rate Pulse Rate [Right Radial] 77 73 72 Respiratory Rate 18 18 18 Blood Pressure Blood Pressure [Left Arm] 125/78 122/79 128/78 O2 Sat by Pulse Oximetry 100 100 98 Oxygen Delivery Method Room Air Room Air Room Air 03/26/22 16:15 03/26/22 17:15 Temperature Pulse Rate Pulse Rate [Right Radial] 75 70 Respiratory Rate 18 18 Blood Pressure Blood Pressure [Left Arm] 124/76 126/76 O2 Sat by Pulse Oximetry 99 100 Oxygen Delivery Method Room Air Room Air Labs: Laboratory Last Values WBC 5.1 X10^3/uL (3.6-10.0) 03/26/22 04:35 RBC 4.13 X10^6/uL (3.5-5.4) 03/26/22 04:35 Hgb 11.8 g/dL (12.0-16.0) L 03/26/22 04:35 Hct 33.9 % (36.0-47.0) L 03/26/22 04:35 MCV 82.1 fL (80.0-100.0) 03/26/22 04:35 MCH 28.5 pg (27.0-34.0) 03/26/22 04:35 MCHC 34.7 g/dL (33.0-35.0) 03/26/22 04:35 RDW 12.4 % (11.6-16.5) 03/26/22 04:35 Plt Count 171 X10^3/uL (150.0-450.0) 03/26/22 04:35 MPV 7.7 fL (7.4-11.0) 03/26/22 04:35 Neut % (Auto) 56.9 % (42.0-75.0) 03/26/22 04:35 Lymph % (Auto) 33.3 % (21.0-51.0) 03/26/22 04:35 [place] % (Auto) 5.5 % (0.0-13.0) 03/26/22 04:35 Eos % (Auto) 3.8 % (0.9-2.9) H 03/26/22 04:35 Baso % (Auto) 0.5 % (0.2-1.0) 03/26/22 04:35 Neut # (Auto) 2.9 x10^3/uL (2.2-4.8) 03/26/22 04:35 Lymph # (Auto) 1.7 X10^3/uL (1.3-2.9) 03/26/22 04:35 [place] # (Auto) 0.3 x10^3/uL (0.3-0.8) 03/26/22 04:35 Eos # (Auto) 0.2 x10^3/uL (0.0-0.2) 03/26/22 04:35 Baso # (Auto) 0.0 X10^3/uL (0.0-0.1) 03/26/22 04:35 Absolute Nucleated RBC 0.1 /100WBC 03/26/22 04:35 PT 13.9 SECONDS (11.8-14.3) 03/23/22 09:50 INR Target Range - 03/23/22 09:50 INR 1.11 (0.8-1.3) 03/23/22 09:50 APTT 26.4 SECONDS (22.9-36.5) 03/23/22 09:50 PTT Comment - 03/23/22 09:50 Sodium 143 mmol/L (136-145) 03/26/22 04:35 Corrected Sodium TNP 03/26/22 04:35 Potassium 3.8 mmol/L (3.5-5.1) 03/26/22 04:35 Chloride 107 mmol/L (98-107) 03/26/22 04:35 Carbon Dioxide 28.2 mmol/L (21-32) 03/26/22 04:35 BUN 9 mg/dL (7-18) 03/26/22 04:35 Creatinine 0.74 mg/dL (0.55-1.02) 03/26/22 04:35 Est GFR (MDRD) Af Amer > 60 (>60) 03/26/22 04:35 Est GFR (MDRD) Non-Af > 60 (>60) 03/26/22 04:35 Glucose 84 mg/dL (65-99) 03/26/22 04:35 Calcium 8.2 mg/dL (8.5-10.1) L 03/26/22 04:35 Corrected Calcium 9.0 mg/dL (8.5-10.1) 03/26/22 04:35 Magnesium 2.1 mg/dL (2.0-2.9) 03/23/22 09:50 Total Bilirubin 0.20 mg/dL (0.2-1.0) 03/26/22 04:35 AST 14 Units/L (15-37) L 03/26/22 04:35 ALT 8 Units/L (12-78) L 03/26/22 04:35 Alkaline Phosphatase 67 Units/L (46-116) 03/26/22 04:35 Creatine Kinase 62 Units/L (26-192) 03/23/22 09:50 Troponin I High Sens 7.5 ng/L (4.0-60.0) 03/23/22 09:50 Total Protein 6.1 g/dL (6.4-8.2) L 03/26/22 04:35 Albumin 3.0 g/dL (3.4-5.0) L 03/26/22 04:35 Globulin 3.1 g/dL (2.5-4.5) 03/26/22 04:35 Albumin/Globulin Ratio 1.0 Ratio (1.1-2.1) L 03/26/22 04:35 Triglycerides 73 mg/dL (0-150) 03/24/22 05:27 Cholesterol 143 mg/dL (0-200) 03/24/22 05:27 LDL Cholesterol, Calc 92 mg/dL (0-100) 03/24/22 05:27 HDL Cholesterol 36 mg/dL (40-60) L 03/24/22 05:27 Cholesterol/HDL Ratio 4.0 (0.0-5.0) 03/24/22 05:27 Specimen Type Clean catch urine 03/23/22 08:40 Urine Color Yellow (YELLOW) 03/23/22 08:40 Urine Appearance Clear (CLEAR) 03/23/22 08:40 Urine pH 6.0 (5.0 - 8.0) 03/23/22 08:40 Ur Specific [place] 1.015 (1.000-1.030) 03/23/22 08:40 Urine Protein Negative (NEGATIVE) 03/23/22 08:40 Urine Glucose (UA) Negative (NEGATIVE) 03/23/22 08:40 Urine Ketones Negative (NEGATIVE) 03/23/22 08:40 Urine Blood Negative (NEGATIVE) 03/23/22 08:40 Urine Nitrite Negative (NEGATIVE) 03/23/22 08:40 Urine Bilirubin Negative (NEGATIVE) 03/23/22 08:40 Urine Urobilinogen Normal (NORMAL) 03/23/22 08:40 Ur Leukocyte Esterase 1+ (NEGATIVE) 03/23/22 08:40 Urine RBC 0-2 /HPF (0-3) 03/23/22 08:40 Urine WBC 3-5 /HPF (0-5) 03/23/22 08:40 Ur Squamous Epith Cells Few /HPF (NEGATIVE) 03/23/22 08:40 Urine Bacteria Trace /HPF (NEGATIVE) 03/23/22 08:40 Ur Culture Indicated? No/not indicated 03/23/22 08:40 Tissue Pathology To follow 03/26/22 11:56 Reason For Visit: PNEUMOPERITONEUM Discharge Date Discharge Date: 03/26/22 Discharge Diagnosis All Active Problems (Updated 03/23/22 @ 23:36 by Pepito Stover) Cholelithiases (Acute) Pneumoperitoneum of unknown etiology (Acute) Pneumoperitoneum (Acute) UTI (urinary tract infection) (Acute) High grade squamous intraepithelial cervical dysplasia (Acute) Pelvic pain (Acute) Dysmenorrhea (Acute) Irregular menses (Acute) Back pain (Acute) Headache (Acute) Fall (Acute) Foreign body, old, orbit (Acute) COVID-19 (Acute) Plan of Treatment: Continue with present treatment and follow up plan. Pt is to keep follow up appointment as instructed and take medications as ordered. Discharge Medications Discharge Medications: No Known Drug Allergies Allergy (Verified 01/17/22 06:58) New Prescriptions oxycodone-acetaminophen 5 mg-325 mg tablet (Percocet) 1 tab PO Q6H PRN #20 tabs 03/26/22 [Rx] Discharge Disposition Assessment: Pneumoperitoneum , cholelithiasis and chronic cholecystyitis Discharge Plan Discharge Plan Hospital Course: 36 year old female who presented to the emergency room with abdominal pain radiating into right back after intercourse. Patient had a laparoscopic total hysterectomy and bilateral salpingo-oophorectomy approximately six weeks prior. Plain films showed pneumoperitoneum. CT scan done without contrast showed no o bvious intra- abdominal pathology except for a gallstone impacted in the neck of the gallbladder with chronic gallbladder wall thickening. There was no obvious etiology of the pneumoperitoneum . She was taken to the operating room and underwent uncomplicated laparoscopic cholecystectomy. She is tolerating a diet well. She will be discharged home and follow up with me and one week. She is given Percocet 5 mg tablets, one every six hours PRN pain. Patient Disposition: 01 HOME, SELF-CARE Condition: Stable Health Concerns: Post Hospitalization: new medications and changes needed to prevent readmission or further decline. Pt educated and given instructions on all concerns. Care Plan Goals: Problem: Pain/Alteration in Comfort Goal: Improve/ Resolve Pain; Achieve Pain Tolerance Instructions: Take pain medications as prescribed. Contact your primary care provider if your pain is unrelieved or worsens. Follow up with primary care provider as directed. Plan of Treatment: Continue with present treatment and follow up plan. Pt is to keep follow up appointment as instructed and take medications as ordered. Assessment: Pneumoperitoneum , cholelithiasis and chronic cholecystyitis Prescription drug monitoring program results: PDMP reviewed and no concerns identified Prescriptions: New oxycodone-acetaminophen [Percocet] 5-325 mg tablet 1 tab PO Q6H MDD 4 PRNQty: 20 0RF Continued estradiol 2 mg Tablet 2 mg PO QDAY Qty: 30 12RF Orders to Discharge Patient Discharge Orders: Discharge (Routine); Ordered 03/26/22 Ordered By: Pepito Stover Follow ups/Referrals Follow ups/Referrals: Pepito Stover [STAFF PHYSICIAN] - 04/03/22 9:30 am Instructions Instructions: Laparoscopic Cholecystectomy, Care After, Laparoscopic Cholecystectomy Stand Alone Forms: Excuse From Work or School
--- OUTSIDE RECORDS SUMMARY | 2022-03-27 08:05 | XMS | Continuity of Care Document ---
:1985 Author Name [employer] Technician, System Address Unavailable Unavailable , Care Team Providers Name Role Phone No, PCP Unavailable Unavailable Roosevelt Plascencia Unavailable Obie Jackson MD Unavailable Skylar Daniels Unavailable Unavailable Unavailable Unavailable Problems Name Dates Details Chronic middle ear effusion, left (H65.492, 381.3) Status: Active Gastroesophageal reflux (K21.9, 530.81) Status: Active No pertinent past medical history Status : Active Tooth infection (K04.7, 522.4) Status: A ctive Medications Name Dates Details Omeprazole 40 MG Oral Capsule Delayed Re lease 1 (one) Capsule EVERY MORNING for 90 da ys Quantity: 90 {Capsule} Refills: 3 Ordered:22-Jun-2020 Skylar Daniels Start : 22-Jun-2020 Active Clindamycin HCl 300 MG Oral Capsule 1 (one) Capsule three times daily for 7 days Quantity: 21 {Capsule} Refills: 0 Ordered:20-Jan-2021 Skylar Daniels Start : 20-Jan-2021 End : 27-Jan-2021 Inactive Levaquin 500 MG Oral Tablet 1 (one) Tablet daily for 0 days Quantity: 10 {Tablet} Refills: 0 Ordered:22-Jun-2020 Skylar Daniels Start : 03-Mar-2020 End : 22-Jun-2020 Inactive Allergies and Adverse Reactions Name Dates Details No Known Drug Allergies (Allergy) Onset: 03-Mar-2020 Status : Active Procedures Procedure Dates Details No pertinent past surgical history Compl eted Family History Unknown Family Member Name Dates Details Anemia Comments: Sister. Status: Active Arthritis Comments: Father. Status: Active Completed Stroke Comments: Father. Status: Active Heart Disease Comments: Mother. Status: Active Hypercholesterolemia Comments: Father. Status: Active Hypertension Comments: Father. Status: Active Seizure disorder Comments: Father. Status: Active Social History Name Dates Details Caffeine Use Status: Active Current tobacco use Status: Active Current tobacco use: Uses chewing tobacco. Has been smoking for 8 years. Status: Active Exercise History: Inactive. Status: Acti ve No Drug Use Status: Active Non Drinker/No Alcohol Use Status: Activ e Non Smoker/No Tobacco Use Status: Active Seat Belt Use: Always uses seat belts. S tatus: Active Tobacco/Smoke Exposure: Daily. Status: A ctive Smoking Status Name Dates Details Smoker (finding) Vital Signs Date Test Result Details :41 Heart Rate 86 /min Comments: Cas rn: Regular Systolic blood pressure 117 mm[Hg] Comments: Patien t Position: Sitting; Cuff Location: Left Arm; Cuff Size: Standard Diastolic blood pressure 80 mm[Hg] Comments: Patie nt Position: Sitting; Cuff Location: Left Arm; Cuff Size: Standard Weight 122 lb Body height 67 in Body mass index (BMI) [Ratio] 19.11 kg/m2 Body surface area Derived from 1.64 m2 formula :12 Heart Rate 73 /min Comments: Tosin n: Regular Systolic blood pressure 101 mm[Hg] Comments: Patien t Position: Sitting; Cuff Location: Left Arm; Cuff Size: Standard Diastolic blood pressure 66 mm[Hg] Comments: Patie nt Position: Sitting; Cuff Location: Left Arm; Cuff Size: Standard Weight 132 lb Body height 67 in Body mass index (BMI) [Ratio] 20.67 kg/m2 Body surface area Derived from 1.69 m2 formula :11 Body temperature 98.2 f Comments: Metho d: Temporal Heart Rate 93 /min Comments: Pattern: R egular Respiratory rate 20 /min Comments: Pattern: U nlabored O2 SAT 98 % Comments: Room air Systolic blood pressure 107 mm[Hg] Comments: Patien t Position: Sitting; Cuff Location: Left Arm; Cuff Size: Standard Diastolic blood pressure 64 mm[Hg] Comments: Patie nt Position: Sitting; Cuff Location: Left Arm; Cuff Size: Standard Weight 132 lb Body height 67 in Body mass index (BMI) [Ratio] 20.67 kg/m2 Body surface area Derived from formula 1.69 m2 :42 Comments: Calderon estevese spouse Heart Rate 76 /min Comments: Pattern: R egular Systolic blood pressure 106 mm[Hg] Comments: Patien t Position: Sitting; Cuff Location: Left Arm; Cuff Size: Standard Diastolic blood pressure 69 mm[Hg] Comments: Patie nt Position: Sitting; Cuff Location: Left Arm; Cuff Size: Standard Weight 122.5 lb Body height 67 in Body mass index (BMI) [Ratio] 19.19 kg/m2 Body surface area Derived from 1.64 m2 formula [id number] Comments: [employer] employee. Systolic blood pressure 101 mm[Hg] Comments: Patien t Position: Sitting; Cuff Location: Left Arm; Cuff Size: Standard Diastolic blood pressure 67 mm[Hg] Comments: Patie nt Position: Sitting; Cuff Location: Left Arm; Cuff Size: Standard Weight 121 lb Body height 67 in Body mass index (BMI) [Ratio] 18.95 kg/m2 Body surface area Derived from 1.63 m2 formula :40 Comments: SPous e of employee Heart Rate 68 /min Comments: Pattern: R egular Systolic blood pressure 113 mm[Hg] Comments: Patien t Position: Sitting; Cuff Location: Left Arm; Cuff Size: Standard Diastolic blood pressure 69 mm[Hg] Comments: Patie nt Position: Sitting; Cuff Location: Left Arm; Cuff Size: Standard Weight 120 lb Body height 67 in Body mass index (BMI) [Ratio] 18.79 kg/m2 Body surface area Derived from 1.63 m2 formula :24 Heart Rate 75 /min Comments: Tosin n: Regular Respiratory rate 22 /min Comments: Pattern: U nlabored Systolic blood pressure 97 mm[Hg] Comments: Patien t Position: Sitting; Cuff Location: Left Arm; Cuff Size: Standard Diastolic blood pressure 61 mm[Hg] Comments: Patie nt Position: Sitting; Cuff Location: Left Arm; Cuff Size: Standard Weight 124 lb Body height 67 in Body mass index (BMI) [Ratio] 19.42 kg/m2 Body surface area Derived from formula 1.65 m2 :56 Heart Rate 77 /min Comments: Cas rn: Regular Respiratory rate 16 /min Comments: Pattern: U nlabored Systolic blood pressure 114 mm[Hg] Comments: Garrett t Position: Sitting; Cuff Location: Left Arm; Cuff Size: Standard Diastolic blood pressure 59 mm[Hg] Comments: Aida nt Position: Sitting; Cuff Location: Left Arm; Cuff Size: Standard Weight 121 lb Body height 67 in Body mass index (BMI) [Ratio] 18.95 kg/m2 Body surface area Derived from formula 1.63 m2 Results Date Description Value Details No Result Information Available Encounters Review On: 26-Mar-2022 9:56 [facility] On: 09-Aug-2021 14:41 [facility] End: 09-Aug-2021 14:41 [employer] Medication Prescribed On: 20-Jan-2021 12:45 Encounter Diagnosis: Tooth infection [facility]: 28-Jul-2020 8:12 [facility] End: 28-Jul-2020 8:12 [employer] Medication Prescribed On: 22-Jun-2020 10:55 Encounter Diagnosis: Gastroesophageal reflux [facility] On: 03-Mar-2020 14:42 Encounter Reason: Earache - The onset of the earache has been gradual and has been occurring in a persistent pattern for 2 years. The course has been increasing. The earache is described as a moderate dull aching and sha End: 03-Mar-2020 15:28 rp pain. The earache is described as paul ng located in the inner ear. The pain is felt in the left ear. The symptoms have been associated with decreased hearing and non-purulent discharge from ear (Bleed ing from leg inner ear). Note for "Earac he": Patient is in the office today with complaints of left earache, bleeding, loss of hearing in left ear, and had the "sound of ocean waves" or "wrinkling paper " in her left ear x 2 years. Patient sta marilou she lost her hearing last Saturday and the inner ear had blood coming out of it yesterday. Patient states she also has dizziness with nausea and is "off wendi nce" at times. Patient voices a pain lev el of 6 out of 10 at this time to left inner ear. Patient has no known drug allergies.Encounter Diagnosis: Chronic middle ear effusion, left [facility] Physical On: 11-Sep-2018 15:42 [facility] End: 11-Sep-2018 15:53 Hospital Physical On: 08-Aug-2017 17:15 [facility] End: 08-Aug-2017 17 :16 Hospital Physical On: 09-Aug-2016 16:40 [facility] End: 09-Aug-2016 16 :41 [facility] On: 12-Aug-2013 12:24 [facility] End: 12-Aug-2013 12 :24 [facility] On: 09-Sep-2012 14:55 [facility] End: 09-Sep-2012 14 :56
--- NOTE | 2022-03-27 13:24 | DR.OPNOTE ---
OP NOTE Pre-Op Diagnosis: cholelithiasis and chronic cholecystitis Post-Op Diagnosis: Same Procedure Date Date Of Procedure: 03/26/22 Procedure: PROCERURE : LAPROSCOPIC CHOLECYSTECOMY NARRATIVE: The patient was taken to the operative suite and placed in the supine position. General anesthesia was induced and the abdomen prepped and draped in sterile fashion. Time out for the procedure obtained . Curvilinear incision was made below the umbilicus in the midline and dissection carried out through the subcutaneous tissue with electrocautery . Holding sutures of zero Vicryl placed on either side of the mid line fascia and the mid line fascia opened with a # 15 knife . Peritoneum opened with Metzenbaum scissors and abdominal cavity entered. Cheng canula placed and secured with holding sutures. The abdomen was insufflated to 15 mm of mercury with carbon dioxide . Two 5 mm trocars placed along the right costal margin and a 5 mm trocar placed in the epigastrium. The gallbladder had significant adhesions around it which were dissected free with hook cautery . Gallbladder was elevated and dissection carried out in Calot's triangle identifying the cystic artery and cystic duct. This is the critical view of safety. Both the cystic duct and cystic artery were clipped proximally and distally and then divided. The peritoneum of the gallbladder incised with electrocautery and the gallbladder removed from the liver bed and brought out through the umbilical incision. Abdomen was irrigated and suctioned free. Surgicel placed in the liver bed. All trocars removed. The fascia of the initial incision closed with interrupted 0 Vicryl sutures. All incisions had the subcutaneous tissue closed with interrupted 3-0 Vicryl sutures and steri strips applied. A total of 20 cc's of 0.5% Marcaine was distributed between these fou r incisions. The patient was extubated and taken to the recovery room in good condition. Type of Anesthesia: Local and General Anesthetic w/ETT Findings: gallstone impacted in the neck of the gallbladder. Specimen/Pathology: gallbladder Type of Fluids Used:: Lactated Ringers EBL: minimal Complications:: none Needle/Sponge Count:: correct Disposition/Condition: Pt. tolerated procedure without difficulty. Extubated in the OR and taken to PACU in stable condition.
--- NOTE | 2022-03-28 11:13 | OR.IMMED ---
IMMEDIATE POST-OP NOTE Immediate Post-Op Note Date of surgery/procedure: 03/26/22 Pre-Op Diagnosis: cholelithiasis and cholecystitis Post-Op Diagnosis: same Procedure: laparoscopic cholecystectomy Description of Procedure: see operative note Surgeon/Distillery Miller: Jolanta Findings: as above, stone completely impacted in the neck of the gallbladder Specimens Removed: lisa Estimated Blood Loss: minimal Complications: none Progress Notes: Return to floor and if tolerating diet will discharge home. Final Diagnosis: as above
== END 2022-03-26 18:50 | disposition home or self-care (01) ==
LOC: MED/SURG 08:11 → ER 08:11 → MED/SURG 17:11
PROVIDERS: ADMIT Surgery; ATTEND Surgery
DX: Z90.722 Acquired absence of ovaries, bilateral; R07.89 Other chest pain; R10.84 Generalized abdominal pain; Z90.710 Acquired absence of both cervix and uterus; Z72.0 Tobacco use; K66.8 Other specified disorders of peritoneum; K80.10 Calculus of gallbladder with chronic cholecystitis without obstruction; N39.0 Urinary tract infection, site not specified